=== PATIENT | female | born 1960 | race Caucasian/White ===

== ENCOUNTER 2022-07-13 17:37 | Emergency (ER) | payer BC, OTHER ==
[2022-07-13 17:43] VITALS: BP 120/81; PULSE 110; RESP 18; TEMP 98.1; BMI 56.3
[2022-07-13] MEDS ORDERED: ACETAMINOPHEN 500 MG TABLET (FP) PO ONE (18:31)
[2022-07-13] MEDS ORDERED: ACETAMINOPHEN 325 MG TABLET (FP) ONE (18:34)
[2022-07-13] MEDS ORDERED: LIDOCAINE 5% TOPICAL PATCH TP ONE (19:47)
[2022-07-13 19:54] LABS: EPI CELLS >36 /uL (0-25.1); HYALINE CASTS 2 /uL (0-3.1); PH,URINE 5.5 (5.0-8.0); URINE APPEARANCE CLOUDY; URINE BACTERIA 660 /uL (0-1359); URINE BILIRUBIN NEGATIVE (NEGATIVE); URINE COLOR DK YELLOW; URINE GLUCOSE (UA) 3+ (NEGATIVE); URINE KETONE TRACE (NEGATIVE); URINE LEUK ESTERASE NEGATIVE (NEGATIVE); URINE NITRITE NEGATIVE (NEGATIVE); URINE PROTEIN 1+ (NEGATIVE)
[2022-07-13] MEDS ORDERED: LIDOCAINE 5% TOPICAL PATCH ONE (19:56)
[2022-07-13 20:10] LABS: URINE RBC 22 /uL (0-23.9)
[2022-07-13 20:11] LABS: URINE WBC 125 /uL (0-25.8)
[2022-07-13] MEDS ORDERED: LIDOCAINE PATCH REMOVAL MC SCH (22:00)
== END 2022-07-13 20:14 | disposition home or self-care (01) ==
LOC: JER 17:37
DX: S06.0X9A Concussion with loss of consciousness of unspecified duration, initial encounter (principal); W01.198A Fall on same level from slipping, tripping and stumbling with subsequent striking against other object, initial encounter
CPT/HCPCS: 70450-TC; 72170-TC-FY; 81003; 87086; 99285-25

== ENCOUNTER 2024-02-07 11:36 | Inpatient (IN) | payer BC, OTHER ==
[2024-02-07] MEDS ORDERED: CEFEPIME 2 GM/100 ML BAG IVPB ONE (12:47)
[2024-02-07] MEDS: CEFEPIME HCL 2 GM VIAL (RESTRICTED TO ID) IVPB ONE (12:55)
[2024-02-07] MEDS: CEFEPIME HCL 1 GM VIAL (RESTRICTED TO ID) IVPB ONE (12:56)
[2024-02-07 12:58] LABS: EOS % 0.9 % (0-4.5); HEMATOCRIT 31.9 % (32.4-45.2); HEMOGLOBIN 10.5 GM/dL (10.7-15.3); LYMPH % 15.5 % (8-40); MCH 24.7 pg (25.7-33.7); MCHC 32.8 g/dl (32.0-36.0); MEAN CELL VOLUME 75.3 fl (80-96); MONO % 8.5 % (3.8-10.2); NEUT % 74.1 % (42.8-82.8); PLATELET COUNT 295 10^3/uL (134-434); RBC 4.24 M/mm3 (3.60-5.2); RDW 16.6 % (11.6-15.6); WHITE BLOOD COUNT 10.8 K/mm3 (4.0-10.0)
[2024-02-07] MEDS ORDERED: VANCOMYCIN 1 GRAM (PRE-DOCKED) 1,000 MG/250 ML BAG IVPB ONE ×2 (13:08→15:06)
[2024-02-07] MEDS: VANCOMYCIN 1,000 MG in DEXTROSE 5%-WATER - 250 ML IVPB ONE ×2 (13:29→15:14)
[2024-02-07 13:47] LABS: ERYTHROCYTE SEDIMENTATION RATE 73 mm/hr (0-30)
[2024-02-07 14:21] LABS: POTASSIUM 4.3 mmol/L (3.5-5.1)
[2024-02-07 14:23] LABS: ALBUMIN 2.4 g/dl (3.4-5.0)
[2024-02-07 14:24] LABS: BLOOD UREA NITROGEN 11.5 mg/dL (7-18)
[2024-02-07 14:27] LABS: CREATININE 0.7 mg/dL (0.55-1.3)
[2024-02-07 14:28] LABS: BILIRUBIN,TOTAL 0.6 mg/dL (0.2-1); TOT PROT 7.7 g/dl (6.4-8.2)
[2024-02-07] MEDS ORDERED: ACETAMINOPHEN 325 MG TABLET (FP) PO PRN (15:20)
[2024-02-07] MEDS: PANTOPRAZOLE 40 MG TABLET PO SCH (16:56)
[2024-02-07] MEDS: ZINC SULFATE 220 MG CAPSULE (FP) PO SCH (16:56)
[2024-02-07] MEDS: VITAMIN A 10,000 UNITS (3000 MCG) CAPSULE PO SCH (16:56)
[2024-02-07] MEDS: CHOLECALCIFEROL (VIT D3) 5000 UNITS (125 MCG) CAP PO SCH (16:56)
[2024-02-07] MEDS: INSULIN ASPART SLIDING SCALE (NOVOLOG) 1 VIAL SQ SCH (16:56)
[2024-02-07] MEDS: VANCOMYCIN HCL 1,500 MG in DEXTROSE 5%-WATER - 500 ML IVPB ONE (17:13)
[2024-02-07] MEDS: VANCOMYCIN 500 MG in DEXTROSE 5%-WATER - 250 ML IVPB ONE (17:13)
[2024-02-07] MEDS ORDERED: ATORVASTATIN CA 20 MG TABLET (FP) ONE (22:48)
[2024-02-07] MEDS ORDERED: ASCORBIC ACID 500 MG TABLET (FP) ONE (22:48)
[2024-02-07] MEDS: ASCORBIC ACID 500 MG TABLET (FP) PO SCH (22:54)
[2024-02-07] MEDS: ATORVASTATIN CA 20 MG TABLET (FP) PO SCH (22:54)
[2024-02-07] MEDS ORDERED: INSULIN ASPART SLIDING SCALE (NOVOLOG) 1 VIAL SQ ONE (23:00)
[2024-02-08] MEDS: DIGOXIN 0.125 MG TABLET PO SCH (10:08)
[2024-02-08] MEDS: FUROSEMIDE 40 MG TABLET (FP) PO SCH (10:09)
[2024-02-08] MEDS: LISINOPRIL 10 MG TABLET PO SCH (10:10)
[2024-02-08] MEDS: INSULIN ASPART SLIDING SCALE (NOVOLOG) 1 VIAL SQ SCH ×3 (11:33→23:11)
[2024-02-08] MEDS: EDOXABAN TOSYLATE 30 MG TABLET PO SCH (11:51)
[2024-02-08 11:54] LABS: BASO % 0.4 % (0-2.0); EOS % 1.1 % (0-4.5); HEMATOCRIT 30.2 % (32.4-45.2); LYMPH % 22.6 % (8-40); MCH 24.8 pg (25.7-33.7); MCHC 32.9 g/dl (32.0-36.0); MEAN CELL VOLUME 75.4 fl (80-96); MEAN PLT VOLUME 8.2 fl (7.5-11.1); MONO % 10.5 % (3.8-10.2); NEUT % 65.4 % (42.8-82.8); PLATELET COUNT 281 10^3/uL (134-434); RBC 4.01 M/mm3 (3.60-5.2); RDW 17.1 % (11.6-15.6); WHITE BLOOD COUNT 10.5 K/mm3 (4.0-10.0)
[2024-02-08] MEDS: APIXABAN 5 MG TABLET PO SCH (12:04)
[2024-02-08] MEDS ORDERED: MEROPENEM 1 GM PUSH 1 GM/20 ML DISP.SYRIN IVPUSH SCH (14:45)
[2024-02-08] MEDS ORDERED: CLINDAMYCIN 900 MG PREMIX IVPB 900 MG/50 ML BAG IVPB SCH (14:45)
[2024-02-08] MEDS ORDERED: VANCOMYCIN PREMIX 1.5 GM 1,500 MG/300 ML BAG IVPB SCH (15:00)
[2024-02-08] MEDS: IRON SUCROSE INJECTION 300 MG in SODIUM CHLORIDE 235 ML IVPB ONE (15:00)
[2024-02-08 15:55] LABS: INR 1.31 (0.83-1.09); PROTHROMBIN TIME (PATIENT) 14.7 SEC (9.7-13.0)
[2024-02-08] MEDS ORDERED: PROPOFOL 40 ML ONE (16:27)
[2024-02-08] MEDS ORDERED: LIDOCAINE HCL/PF 2% SDV 5ML VIAL ONE (16:28)
[2024-02-08] MEDS ORDERED: VANCOMYCIN 1,000 MG VIAL (RESTRICTED TO ID ONLY) ONE (16:53)
[2024-02-08] MEDS ORDERED: LIDOCAINE HCL 1%, 10 MG/ML (20ML VIAL) ONE (16:54)
[2024-02-08] MEDS ORDERED: GENTAMICIN SO4 80 MG/2 ML VIAL ONE (16:54)
[2024-02-08] MEDS ORDERED: ROCURONIUM BROMIDE 50 MG/5 ML SYRINGE ONE (17:10)
[2024-02-08] MEDS ORDERED: BUPIVACAINE HCL/PF 0.5% (5MG/ML) 10 ML VIAL ONE (18:58)
[2024-02-08] MEDS ORDERED: LIDOCAINE HCL 2% (20ML MULTI-DOSE VIAL) ONE (18:58)
[2024-02-08] MEDS: LIDOCAINE HCL/PF 2% SDV 5ML VIAL INF ONE (19:15)
[2024-02-08] MEDS: BUPIVACAINE HCL/PF 0.5% (5 MG/ML) 30 ML VIAL IJ ONE ×3 (20:23)
[2024-02-08] MEDS ORDERED: ONDANSETRON 4 MG/2 ML VIAL IVPUSH PRN (20:37)
[2024-02-08] MEDS ORDERED: ACETAMINOPHEN 325 MG TABLET (FP) PO PRN (20:51)
[2024-02-08] MEDS ORDERED: INSULIN (LEVEMIR) 100 UNITS/ML UNITS SQ SCH (22:00)
[2024-02-08] MEDS ORDERED: INSULIN ASPART SLIDING SCALE (NOVOLOG) 1 VIAL SQ SCH (22:00)
[2024-02-08] MEDS: ASCORBIC ACID 500 MG TABLET (FP) PO SCH (23:09)
[2024-02-08] MEDS: ATORVASTATIN CA 20 MG TABLET (FP) PO SCH (23:09)
[2024-02-08] MEDS: INSULIN (LEVEMIR) 100 UNITS/ML UNITS SQ SCH (23:11)
[2024-02-08] MEDS: LACTATED RINGERS SOLUTION 1,000 ML IV SCH (23:40)
[2024-02-09] MEDS ORDERED: ONDANSETRON 4 MG/2 ML VIAL IVPUSH PRN (00:01)
[2024-02-09] MEDS: LACTATED RINGERS SOLUTION 1000 ML INFUS.BAG IV ONE ×2 (00:06→18:25)
[2024-02-09] MEDS: MUPIROCIN 2% TOPICAL OINTMENT FOR DECOLONIZATION NS SCH (00:07)
[2024-02-09 00:38] LABS: BASO % 0.7 % (0-2.0); EOS % 1.1 % (0-4.5); HEMOGLOBIN 8.9 GM/dL (10.7-15.3); LYMPH % 16.3 % (8-40); MCH 24.8 pg (25.7-33.7); MEAN CELL VOLUME 75.1 fl (80-96); MEAN PLT VOLUME 7.9 fl (7.5-11.1); MONO % 10.2 % (3.8-10.2); NEUT % 71.7 % (42.8-82.8); PLATELET COUNT 287 10^3/uL (134-434); RDW 16.6 % (11.6-15.6); WHITE BLOOD COUNT 10.1 K/mm3 (4.0-10.0)
[2024-02-09 00:57] LABS: POTASSIUM 3.8 mmol/L (3.5-5.1)
[2024-02-09 00:59] LABS: CALCIUM 7.7 mg/dL (8.5-10.1)
[2024-02-09 01:00] LABS: BLOOD UREA NITROGEN 9.4 mg/dL (7-18); MAGNESIUM 1.5 mg/dL (1.8-2.4)
[2024-02-09 01:03] LABS: CREATININE 0.7 mg/dL (0.55-1.3)
[2024-02-09 01:04] LABS: BILIRUBIN,TOTAL 0.5 mg/dL (0.2-1)
[2024-02-09 01:05] LABS: TOT PROT 6.3 g/dl (6.4-8.2)
[2024-02-09] MEDS: PHENYLEPHRINE NS PREMIX 50,000 MCG/500 ML BAG IVPB SCH (01:40)
[2024-02-09] MEDS: ACETAMINOPHEN 1000 MG/100 ML BAG IVPB PRN (01:40)
[2024-02-09] MEDS ORDERED: MEROPENEM 1 GM in DEXTROSE 5%-WATER 100 ML IVPB SCH (02:00)
[2024-02-09] MEDS ORDERED: MEROPENEM 1 GM PUSH 1 GM/20 ML DISP.SYRIN IVPUSH SCH (02:00)
[2024-02-09] MEDS: CLINDAMYCIN 900 MG PREMIX IVPB 900 MG/50 ML BAG IVPB SCH (02:08)
[2024-02-09] MEDS: MEROPENEM 1 GM PUSH 1 GM/20 ML DISP.SYRIN IVPUSH SCH (02:08)
[2024-02-09] MEDS: VANCOMYCIN PREMIX 1.5 GM 1,500 MG/300 ML BAG IVPB SCH (04:02)
[2024-02-09] MEDS: INSULIN (LEVEMIR) 100 UNITS/ML UNITS SQ SCH ×2 (06:13→21:44)
[2024-02-09] MEDS: MAGNESIUM 2GM/50ML STERILE WATER IVPB IVPB ONE (06:19)
[2024-02-09 07:44] LABS: BASO % 0.3 % (0-2.0); EOS % 1.4 % (0-4.5); HEMATOCRIT 27.5 % (32.4-45.2); HEMOGLOBIN 8.9 GM/dL (10.7-15.3); LYMPH % 6.3 % (8-40); MCH 24.4 pg (25.7-33.7); MCHC 32.3 g/dl (32.0-36.0); MEAN CELL VOLUME 75.5 fl (80-96); MEAN PLT VOLUME 8.2 fl (7.5-11.1); MONO % 5.3 % (3.8-10.2); NEUT % 86.7 % (42.8-82.8); PLATELET COUNT 327 10^3/uL (134-434); RBC 3.64 M/mm3 (3.60-5.2); RDW 16.8 % (11.6-15.6); WHITE BLOOD COUNT 17.8 K/mm3 (4.0-10.0)
[2024-02-09] MEDS: SODIUM CHLORIDE 500 ML IV STA (09:28)
[2024-02-09] MEDS: MAGNESIUM SULFATE IN WATER 2 GM/50 ML IVPB IVPB ONE (09:42)
[2024-02-09] MEDS: PANTOPRAZOLE SODIUM 40 MG VIAL IVPUSH SCH (09:43)
[2024-02-09] MEDS: ENOXAPARIN NA (PORCINE) 40 MG/0.4 ML DISP.SYRIN SQ SCH (09:44)
[2024-02-09] MEDS: DIGOXIN 0.125 MG TABLET PO SCH (09:44)
[2024-02-09] MEDS: ZINC SULFATE 220 MG CAPSULE (FP) PO SCH (09:45)
[2024-02-09] MEDS: PANTOPRAZOLE 40 MG TABLET PO SCH (09:45)
[2024-02-09] MEDS: VITAMIN A 10,000 UNITS (3000 MCG) CAPSULE PO SCH (09:46)
[2024-02-09] MEDS: CHOLECALCIFEROL (VIT D3) 5000 UNITS (125 MCG) CAP PO SCH (09:48)
[2024-02-09] MEDS ORDERED: EDOXABAN TOSYLATE 30 MG TABLET PO SCH (10:00)
[2024-02-09] MEDS ORDERED: LISINOPRIL 10 MG TABLET PO SCH (10:00)
[2024-02-09] MEDS ORDERED: FUROSEMIDE 40 MG TABLET (FP) PO SCH (10:00)
[2024-02-09] MEDS: BISACODYL 10 MG SUPP.RECT PR ONE (10:41)
[2024-02-09] MEDS: POLYETHYLENE GLYCOL (HEALTHYLAX) 3350 17 GM PACKET PO SCH (10:41)
[2024-02-09] MEDS: IRON SUCROSE INJECTION 300 MG in SODIUM CHLORIDE 235 ML IVPB ONE (10:41)
[2024-02-09] MEDS: DOCUSATE SODIUM 100 MG CAPSULE (FP) PO SCH (14:06)
[2024-02-09] MEDS: COLLAGENASE CLOSTRIDIUM HIST. 30 GRAMS TUBE TP SCH (16:29)
[2024-02-09] MEDS: TAMSULOSIN HCL 0.4 MG CAP PO ONE (16:31)
[2024-02-09] MEDS ORDERED: NOREPINEPHRINE BITARTRATE 4 MG/4 ML ML IV ONE (18:48)
[2024-02-09] MEDS: NOREPINEPHRINE BITARTRATE 4,000 MCG in DEXTROSE 5%-WATER - 496 ML IV SCH (18:58)
[2024-02-09 21:04] LABS: BASO % 0.1 % (0-2.0); EOS % 1.2 % (0-4.5); HEMATOCRIT 26.5 % (32.4-45.2); HEMOGLOBIN 8.4 GM/dL (10.7-15.3); MCHC 31.9 g/dl (32.0-36.0); MEAN CELL VOLUME 75.4 fl (80-96); MEAN PLT VOLUME 7.9 fl (7.5-11.1); MONO % 5.5 % (3.8-10.2); NEUT % 85.2 % (42.8-82.8); PLATELET COUNT 311 10^3/uL (134-434); RBC 3.51 M/mm3 (3.60-5.2); RDW 17.2 % (11.6-15.6)
[2024-02-09 21:07] LABS: ARTERIAL BLD GAS O2 SATURATION 96.7 % (95-98); ARTERIAL BLOOD GAS BASE EXCESS 0.7 mmol/L (-2-2); ARTERIAL BLOOD GAS PO2 81.3 mmHg (80-100); ARTERIAL BLOOD GAS pH 7.475 (7.350-7.450)
[2024-02-09] MEDS: CHLORHEXIDINE GLUCONATE 4% CLEANSER FOR DECOLONIZATION TP SCH (21:46)
[2024-02-09] MEDS: INSULIN ASPART SLIDING SCALE (NOVOLOG) 1 VIAL SQ SCH (22:24)
[2024-02-09] MEDS: LACTATED RINGERS SOLUTION 1,000 ML/1,000 ML INFUS.BAG IV STA (23:10)
[2024-02-10] MEDS: INSULIN (LEVEMIR) 100 UNITS/ML UNITS SQ SCH ×2 (06:36→21:07)
[2024-02-10] MEDS ORDERED: INSULIN (LEVEMIR) 100 UNITS/ML UNITS SQ ONE (06:53)
[2024-02-10 07:43] LABS: BASO % 0.3 % (0-2.0); EOS % 1.8 % (0-4.5); HEMOGLOBIN 8.4 GM/dL (10.7-15.3); LYMPH % 12.1 % (8-40); MCH 24.6 pg (25.7-33.7); MCHC 32.2 g/dl (32.0-36.0); MEAN CELL VOLUME 76.4 fl (80-96); NEUT % 79.8 % (42.8-82.8); PLATELET COUNT 296 10^3/uL (134-434); RDW 16.8 % (11.6-15.6); WHITE BLOOD COUNT 16.1 K/mm3 (4.0-10.0)
[2024-02-10 08:04] LABS: POTASSIUM 3.8 mmol/L (3.5-5.1)
[2024-02-10 08:07] LABS: CALCIUM 7.5 mg/dL (8.5-10.1)
[2024-02-10 08:10] LABS: ALBUMIN 1.8 g/dl (3.4-5.0); BLOOD UREA NITROGEN 7.4 mg/dL (7-18)
[2024-02-10 08:12] LABS: BILIRUBIN,TOTAL 0.6 mg/dL (0.2-1)
[2024-02-10 08:13] LABS: CREATININE 0.5 mg/dL (0.55-1.3); TOT PROT 5.8 g/dl (6.4-8.2)
[2024-02-10] MEDS: IRON SUCROSE INJECTION 300 MG in SODIUM CHLORIDE 235 ML IVPB ONE (09:32)
[2024-02-10] MEDS ORDERED: FUROSEMIDE 40 MG TABLET (FP) PO SCH (10:00)
[2024-02-10] MEDS: LACTATED RINGERS SOLUTION 1,000 ML IV SCH (11:26)
[2024-02-10] MEDS: ACETAMINOPHEN 1000 MG/100 ML BAG IVPB PRN (11:36)
[2024-02-10] MEDS ORDERED: PHENYLEPHRINE HCL 10 MG/1 ML SINGLE DOSE VIAL ONE (16:16)
[2024-02-11] MEDS ORDERED: NOREPINEPHRINE BITARTRATE 4 MG/4 ML ML IV ONE (02:35)
[2024-02-11 07:31] LABS: BASO % 0.1 % (0-2.0); EOS % 2.9 % (0-4.5); HEMATOCRIT 25.2 % (32.4-45.2); LYMPH % 9.1 % (8-40); MCH 24.1 pg (25.7-33.7); MCHC 31.9 g/dl (32.0-36.0); MEAN CELL VOLUME 75.5 fl (80-96); MEAN PLT VOLUME 7.8 fl (7.5-11.1); NEUT % 80.9 % (42.8-82.8); PLATELET COUNT 317 10^3/uL (134-434); RBC 3.34 M/mm3 (3.60-5.2); RDW 17.3 % (11.6-15.6); WHITE BLOOD COUNT 19.6 K/mm3 (4.0-10.0)
[2024-02-11 07:49] LABS: POTASSIUM 3.7 mmol/L (3.5-5.1)
[2024-02-11 08:07] LABS: ALBUMIN 1.6 g/dl (3.4-5.0); CALCIUM 7.3 mg/dL (8.5-10.1); MAGNESIUM 1.8 mg/dL (1.8-2.4)
[2024-02-11 08:11] LABS: CREATININE 0.5 mg/dL (0.55-1.3)
[2024-02-11 08:12] LABS: BILIRUBIN,TOTAL 0.6 mg/dL (0.2-1); TOT PROT 5.6 g/dl (6.4-8.2)
[2024-02-11] MEDS: HYDROmorphone HCl 2 MG/ML VIAL IVPUSH PRN (10:17)
[2024-02-11] MEDS: SODIUM HYPOCHLORITE 0.25%- 473 ML BULK BOTTLE TP SCH (11:19)
[2024-02-11] MEDS: ALBUMIN HUMAN 25% 12.5 GM/50 ML VIAL IV SCH (11:20)
[2024-02-11] MEDS: metoPROLOL SUCCINATE 25 MG TAB.SR.24H (FP) PO ONE (11:45)
[2024-02-11 14:42] VITALS: BMI 42.6
[2024-02-11] MEDS: VANCOMYCIN PREMIX 1.75 GM 1,750 MG/350 ML PIGGYBACK IVPB SCH (15:20)
[2024-02-11] MEDS: MAGNESIUM SULF 50% (8.12 MEQ/2 ML-1 GM VIAL) IVPB ONE (17:16)
[2024-02-11] MEDS: INSULIN (LEVEMIR) 100 UNITS/ML UNITS SQ SCH (21:21)
[2024-02-12] MEDS: LEVOTHYROXINE NA 88 MCG TABLET (FP) PO SCH (06:07)
[2024-02-12 07:03] LABS: BASO % 0.1 % (0-2.0); EOS % 3.5 % (0-4.5); HEMATOCRIT 23.6 % (32.4-45.2); HEMOGLOBIN 7.5 GM/dL (10.7-15.3); LYMPH % 9.8 % (8-40); MCH 24.5 pg (25.7-33.7); MCHC 31.8 g/dl (32.0-36.0); MEAN PLT VOLUME 7.9 fl (7.5-11.1); MONO % 5.5 % (3.8-10.2); NEUT % 81.1 % (42.8-82.8); PLATELET COUNT 258 10^3/uL (134-434); RBC 3.06 M/mm3 (3.60-5.2); RDW 17.6 % (11.6-15.6); WHITE BLOOD COUNT 15.2 K/mm3 (4.0-10.0)
[2024-02-12 07:09] LABS: INR 1.34 (0.83-1.09); PROTHROMBIN TIME (PATIENT) 15.3 SEC (9.7-13.0)
[2024-02-12 07:11] LABS: POTASSIUM 3.7 mmol/L (3.5-5.1)
[2024-02-12 07:17] LABS: CALCIUM 7.6 mg/dL (8.5-10.1)
[2024-02-12 07:18] LABS: BLOOD UREA NITROGEN 6.1 mg/dL (7-18); MAGNESIUM 1.9 mg/dL (1.8-2.4)
[2024-02-12 07:21] LABS: BILIRUBIN,TOTAL 0.7 mg/dL (0.2-1); CREATININE 0.4 mg/dL (0.55-1.3); TOT PROT 5.5 g/dl (6.4-8.2)
[2024-02-12] MEDS ORDERED: GENTAMICIN SO4 80 MG/2 ML VIAL ONE (07:26)
[2024-02-12] MEDS ORDERED: VANCOMYCIN 1,000 MG VIAL (RESTRICTED TO ID ONLY) ONE (07:26)
[2024-02-12] MEDS ORDERED: PROPOFOL 20 ML ONE (07:46)
[2024-02-12] MEDS ORDERED: SUCCINYLCHOLINE CHLORIDE 200 MG/10 ML SYRINGE ONE (07:46)
[2024-02-12] MEDS ORDERED: PHENYLEPHRINE HCL 10 MG/1 ML SINGLE DOSE VIAL ONE (07:46)
[2024-02-12] MEDS: ACETAMINOPHEN 1000 MG/100 ML BAG IVPB ONE (09:13)
[2024-02-12] MEDS ORDERED: ACETAMINOPHEN 1000 MG/100 ML BAG IVPB PRN (11:22)
[2024-02-12] MEDS: diphenhydrAMINE HCL 25 MG CAPSULE (FP) PO ONE (12:09)
[2024-02-12] MEDS: metoPROLOL SUCCINATE 25 MG TAB.SR.24H (FP) PO SCH (14:25)
[2024-02-12] MEDS: oxyCODONE HCL 5 MG TABLET PO PRN (15:27)
[2024-02-12] MEDS ORDERED: ONDANSETRON 4 MG/2 ML VIAL IVPUSH PRN (15:38)
[2024-02-12] MEDS ORDERED: LACTATED RINGERS SOLUTION 1,000 ML IV SCH (15:38)
[2024-02-12] MEDS: INSULIN ASPART SLIDING SCALE (NOVOLOG) 1 VIAL SQ SCH (16:50)
[2024-02-12] MEDS ORDERED: CEFTRIAXONE 2 GM-D5W BAG 2 GM/50 ML BAG IVPB SCH (17:00)
[2024-02-12] MEDS ORDERED: CLINDAMYCIN 900 MG PREMIX IVPB 900 MG/50 ML BAG IVPB SCH (18:00)
[2024-02-12] MEDS ORDERED: MEROPENEM-0.9% SODIUM CHLORIDE 1 GM/50 ML BAG IVPB SCH (18:00)
[2024-02-12] MEDS: CEFTRIAXONE 2 GM-D5W BAG 2 GM/50 ML BAG IVPB SCH (18:24)
[2024-02-12] MEDS: LACTATED RINGERS SOLUTION 1,000 ML IV SCH (18:41)
[2024-02-12] MEDS: POLYETHYLENE GLYCOL (HEALTHYLAX) 3350 17 GM PACKET PO SCH (21:16)
[2024-02-12] MEDS: ASCORBIC ACID 500 MG TABLET (FP) PO SCH (21:16)
[2024-02-12] MEDS: DOCUSATE SODIUM 100 MG CAPSULE (FP) PO SCH (21:16)
[2024-02-12] MEDS: ATORVASTATIN CA 20 MG TABLET (FP) PO SCH (21:16)
[2024-02-12] MEDS: INSULIN (LEVEMIR) 100 UNITS/ML UNITS SQ SCH (21:21)
[2024-02-12] MEDS ORDERED: CHLORHEXIDINE GLUCONATE 4% CLEANSER FOR DECOLONIZATION TP SCH (22:00)
[2024-02-12] MEDS ORDERED: MUPIROCIN 2% TOPICAL OINTMENT FOR DECOLONIZATION NS SCH (22:00)
[2024-02-13] MEDS: LEVOTHYROXINE NA 88 MCG TABLET (FP) PO SCH (06:09)
[2024-02-13 09:01] LABS: HEMATOCRIT 26.3 % (32.4-45.2); HEMOGLOBIN 8.5 GM/dL (10.7-15.3); MCHC 32.3 g/dl (32.0-36.0); MEAN CELL VOLUME 77.3 fl (80-96); MEAN PLT VOLUME 7.5 fl (7.5-11.1); PLATELET COUNT 314 10^3/uL (134-434); RBC 3.41 M/mm3 (3.60-5.2); RDW 17.7 % (11.6-15.6); WHITE BLOOD COUNT 14.4 K/mm3 (4.0-10.0)
[2024-02-13 09:23] LABS: POTASSIUM 4.2 mmol/L (3.5-5.1)
[2024-02-13 09:26] LABS: ALBUMIN 2.2 g/dl (3.4-5.0); CALCIUM 8.4 mg/dL (8.5-10.1)
[2024-02-13 09:27] LABS: BLOOD UREA NITROGEN 6.9 mg/dL (7-18)
[2024-02-13 09:30] LABS: CREATININE 0.5 mg/dL (0.55-1.3)
[2024-02-13 09:31] LABS: BILIRUBIN,TOTAL 0.9 mg/dL (0.2-1); TOT PROT 6.3 g/dl (6.4-8.2)
[2024-02-13] MEDS: ENOXAPARIN NA (PORCINE) 40 MG/0.4 ML DISP.SYRIN SQ SCH (10:23)
[2024-02-13] MEDS: ZINC SULFATE 220 MG CAPSULE (FP) PO SCH (10:24)
[2024-02-13] MEDS: CHOLECALCIFEROL (VIT D3) 5000 UNITS (125 MCG) CAP PO SCH (10:24)
[2024-02-13] MEDS: DIGOXIN 0.125 MG TABLET PO SCH (10:24)
[2024-02-13] MEDS: VITAMIN A 10,000 UNITS (3000 MCG) CAPSULE PO SCH (10:25)
[2024-02-13] MEDS: PANTOPRAZOLE SODIUM 40 MG VIAL IVPUSH SCH (10:26)
[2024-02-13] MEDS: ACETAMINOPHEN 325 MG TABLET (FP) PO PRN (16:04)
[2024-02-13] MEDS: SODIUM HYPOCHLORITE 0.25%- 473 ML BULK BOTTLE TP SCH (19:51)
[2024-02-13] MEDS: COLLAGENASE CLOSTRIDIUM HIST. 30 GRAMS TUBE TP SCH (19:51)
[2024-02-14] MEDS ORDERED: INSULIN (LEVEMIR) 100 UNITS/ML UNITS SQ SCH (10:27)
[2024-02-14 10:30] LABS: POTASSIUM 3.8 mmol/L (3.5-5.1)
[2024-02-14 10:32] LABS: CALCIUM 8.2 mg/dL (8.5-10.1)
[2024-02-14 10:36] LABS: CREATININE 0.5 mg/dL (0.55-1.3)
[2024-02-14] MEDS: INSULIN (LEVEMIR) 100 UNITS/ML UNITS SQ SCH (22:21)
[2024-02-15 10:49] LABS: HEMATOCRIT 28.5 % (32.4-45.2); HEMOGLOBIN 9.4 GM/dL (10.7-15.3); MCH 25.8 pg (25.7-33.7); MEAN PLT VOLUME 7.9 fl (7.5-11.1); PLATELET COUNT 319 10^3/uL (134-434); RBC 3.65 M/mm3 (3.60-5.2); RDW 18.4 % (11.6-15.6); WHITE BLOOD COUNT 13.4 K/mm3 (4.0-10.0)
[2024-02-15] MEDS: diphenhydrAMINE HCL 25 MG CAPSULE (FP) PO ONE (11:14)
[2024-02-15 11:18] LABS: POTASSIUM 3.6 mmol/L (3.5-5.1)
[2024-02-15 11:23] LABS: CALCIUM 8.1 mg/dL (8.5-10.1)
[2024-02-15 11:24] LABS: BLOOD UREA NITROGEN 6.9 mg/dL (7-18)
[2024-02-15 11:27] LABS: CREATININE 0.5 mg/dL (0.55-1.3)
[2024-02-15 11:37] LABS: ANISOCYTOSIS 0; HELMET CELLS 0; HOWELL-JOLLY BODIES 0; MACROCYTOSIS 0; OVALOCYTE 0; ROULEAU 0; SICKELED CELLS 0; TARGET CELLS 0; TEAR DROP CELLS 0; TOXIC GRANULATION 0
[2024-02-15] MEDS: LACTATED RINGERS SOLUTION 1,000 ML IV SCH (13:32)
[2024-02-15] MEDS: INSULIN (LEVEMIR) 100 UNITS/ML UNITS SQ SCH (21:36)
[2024-02-16 08:59] LABS: POTASSIUM 3.6 mmol/L (3.5-5.1)
[2024-02-16 09:05] LABS: BLOOD UREA NITROGEN 6.1 mg/dL (7-18); CALCIUM 8.5 mg/dL (8.5-10.1)
[2024-02-16 09:09] LABS: CREATININE 0.4 mg/dL (0.55-1.3)
[2024-02-16 09:19] LABS: BASO % 0.5 % (0-2.0); EOS % 2.6 % (0-4.5); LYMPH % 26.5 % (8-40); MCH 25.5 pg (25.7-33.7); MCHC 32.1 g/dl (32.0-36.0); MEAN CELL VOLUME 79.6 fl (80-96); MEAN PLT VOLUME 7.5 fl (7.5-11.1); MONO % 9.7 % (3.8-10.2); NEUT % 60.7 % (42.8-82.8); PLATELET COUNT 319 10^3/uL (134-434); RBC 3.52 M/mm3 (3.60-5.2); RDW 19.2 % (11.6-15.6); WHITE BLOOD COUNT 12.7 K/mm3 (4.0-10.0)
[2024-02-16] MEDS: PANTOPRAZOLE 40 MG TABLET PO SCH (09:20)
[2024-02-16] MEDS: traMADol HCL 50 MG TABLET PO PRN (15:48)
[2024-02-16] MEDS: LACTATED RINGERS SOLUTION 1,000 ML IV SCH (17:16)
[2024-02-17 08:35] LABS: BASO % 0.9 % (0-2.0); EOS % 2.8 % (0-4.5); HEMATOCRIT 26.4 % (32.4-45.2); HEMOGLOBIN 8.5 GM/dL (10.7-15.3); LYMPH % 30.6 % (8-40); MCH 25.4 pg (25.7-33.7); MEAN CELL VOLUME 79.5 fl (80-96); MEAN PLT VOLUME 7.2 fl (7.5-11.1); MONO % 9.9 % (3.8-10.2); NEUT % 55.8 % (42.8-82.8); PLATELET COUNT 271 10^3/uL (134-434); RBC 3.33 M/mm3 (3.60-5.2); RDW 20.7 % (11.6-15.6); WHITE BLOOD COUNT 9.4 K/mm3 (4.0-10.0)
[2024-02-17 08:48] LABS: POTASSIUM 3.6 mmol/L (3.5-5.1)
[2024-02-17 08:50] LABS: CALCIUM 8.2 mg/dL (8.5-10.1)
[2024-02-17 08:54] LABS: CREATININE 0.4 mg/dL (0.55-1.3)
[2024-02-17 09:45] LABS: ANISOCYTOSIS 2+; MACROCYTOSIS 0
[2024-02-17] MEDS: ACETAMINOPHEN 325 MG TABLET (FP) PO PRN (11:43)
[2024-02-17] MEDS: INSULIN (LEVEMIR) 100 UNITS/ML UNITS SQ SCH (21:22)
[2024-02-18 10:23] LABS: BASO % 0.7 % (0-2.0); EOS % 3.2 % (0-4.5); HEMATOCRIT 26.5 % (32.4-45.2); HEMOGLOBIN 8.5 GM/dL (10.7-15.3); LYMPH % 29.8 % (8-40); MCH 25.2 pg (25.7-33.7); MCHC 31.9 g/dl (32.0-36.0); MEAN PLT VOLUME 7.5 fl (7.5-11.1); MONO % 10.3 % (3.8-10.2); PLATELET COUNT 254 10^3/uL (134-434); RBC 3.35 M/mm3 (3.60-5.2); RDW 21.3 % (11.6-15.6); WHITE BLOOD COUNT 6.8 K/mm3 (4.0-10.0)
[2024-02-18 10:46] LABS: POTASSIUM 3.9 mmol/L (3.5-5.1)
[2024-02-18 10:48] LABS: CALCIUM 7.9 mg/dL (8.5-10.1)
[2024-02-18 10:49] LABS: BLOOD UREA NITROGEN 7.1 mg/dL (7-18)
[2024-02-18 10:52] LABS: CREATININE 0.4 mg/dL (0.55-1.3)
[2024-02-19] MEDS: ERTAPENEM SODIUM 1 GM in SODIUM CHLORIDE 50 ML IVPB SCH (17:53)
[2024-02-20 09:48] LABS: BASO % 0.6 % (0-2.0); EOS % 3.9 % (0-4.5); HEMATOCRIT 28.1 % (32.4-45.2); LYMPH % 37.5 % (8-40); MCH 25.2 pg (25.7-33.7); MEAN CELL VOLUME 78.8 fl (80-96); MEAN PLT VOLUME 7.5 fl (7.5-11.1); MONO % 8.8 % (3.8-10.2); NEUT % 49.2 % (42.8-82.8); PLATELET COUNT 231 10^3/uL (134-434); RBC 3.56 M/mm3 (3.60-5.2); RDW 21.2 % (11.6-15.6); WHITE BLOOD COUNT 6.5 K/mm3 (4.0-10.0)
[2024-02-20 10:45] LABS: ANISOCYTOSIS 1+
[2024-02-21 10:22] LABS: BASO % 0.7 % (0-2.0); EOS % 4.8 % (0-4.5); HEMATOCRIT 27.8 % (32.4-45.2); HEMOGLOBIN 8.9 GM/dL (10.7-15.3); LYMPH % 38.7 % (8-40); MCH 25.7 pg (25.7-33.7); MCHC 32.2 g/dl (32.0-36.0); MEAN CELL VOLUME 79.7 fl (80-96); MEAN PLT VOLUME 7.8 fl (7.5-11.1); MONO % 8.5 % (3.8-10.2); NEUT % 47.3 % (42.8-82.8); PLATELET COUNT 233 10^3/uL (134-434); RBC 3.48 M/mm3 (3.60-5.2); RDW 21.9 % (11.6-15.6); WHITE BLOOD COUNT 6.8 K/mm3 (4.0-10.0)
[2024-02-22 10:55] LABS: EOS % 5.6 % (0-4.5); HEMATOCRIT 29.6 % (32.4-45.2); HEMOGLOBIN 9.3 GM/dL (10.7-15.3); MCH 25.2 pg (25.7-33.7); MCHC 31.3 g/dl (32.0-36.0); MEAN CELL VOLUME 80.3 fl (80-96); MEAN PLT VOLUME 8.2 fl (7.5-11.1); MONO % 8.3 % (3.8-10.2); NEUT % 50.1 % (42.8-82.8); PLATELET COUNT 227 10^3/uL (134-434); RBC 3.68 M/mm3 (3.60-5.2); RDW 21.6 % (11.6-15.6)
[2024-02-23 10:16] LABS: BASO % 0.9 % (0-2.0); HEMATOCRIT 30.1 % (32.4-45.2); HEMOGLOBIN 9.7 GM/dL (10.7-15.3); LYMPH % 47.7 % (8-40); MCH 25.6 pg (25.7-33.7); MCHC 32.2 g/dl (32.0-36.0); MEAN CELL VOLUME 79.6 fl (80-96); MEAN PLT VOLUME 8.1 fl (7.5-11.1); MONO % 8.9 % (3.8-10.2); NEUT % 36.5 % (42.8-82.8); PLATELET COUNT 226 10^3/uL (134-434); RBC 3.78 M/mm3 (3.60-5.2); RDW 22.2 % (11.6-15.6); WHITE BLOOD COUNT 5.6 K/mm3 (4.0-10.0)
[2024-02-23 10:24] LABS: POTASSIUM 3.9 mmol/L (3.5-5.1)
[2024-02-23 11:09] LABS: CALCIUM 8.9 mg/dL (8.5-10.1)
[2024-02-23 11:10] LABS: BLOOD UREA NITROGEN 5.7 mg/dL (7-18)
[2024-02-23 11:13] LABS: CREATININE 0.5 mg/dL (0.55-1.3)
[2024-02-23] MEDS: APIXABAN 5 MG TABLET PO SCH (21:21)
[2024-02-24 10:34] LABS: BASO % 1.2 % (0-2.0); EOS % 5.3 % (0-4.5); HEMATOCRIT 27.8 % (32.4-45.2); LYMPH % 38.4 % (8-40); MCH 26.1 pg (25.7-33.7); MCHC 32.5 g/dl (32.0-36.0); MEAN CELL VOLUME 80.5 fl (80-96); MEAN PLT VOLUME 8.6 fl (7.5-11.1); MONO % 8.9 % (3.8-10.2); NEUT % 46.2 % (42.8-82.8); PLATELET COUNT 208 10^3/uL (134-434); RBC 3.46 M/mm3 (3.60-5.2); RDW 21.8 % (11.6-15.6); WHITE BLOOD COUNT 5.7 K/mm3 (4.0-10.0)
[2024-02-26 10:06] LABS: BASO % 1.1 % (0-2.0); HEMATOCRIT 31.5 % (32.4-45.2); HEMOGLOBIN 9.8 GM/dL (10.7-15.3); LYMPH % 36.7 % (8-40); MCH 25.3 pg (25.7-33.7); MCHC 31.1 g/dl (32.0-36.0); MEAN CELL VOLUME 81.4 fl (80-96); MEAN PLT VOLUME 8.7 fl (7.5-11.1); MONO % 9.7 % (3.8-10.2); NEUT % 47.5 % (42.8-82.8); PLATELET COUNT 213 10^3/uL (134-434); RBC 3.87 M/mm3 (3.60-5.2); RDW 22.2 % (11.6-15.6); WHITE BLOOD COUNT 5.9 K/mm3 (4.0-10.0)
[2024-02-27 03:38] VITALS: RESP 18
[2024-02-27] MEDS: FLU VACCINE (FLULAVAL) PF 45 MCG/0.5 ML SYRINGE 2024-2025 IM ONE (11:38)
[2024-02-27 21:05] VITALS: BP 109/61; PULSE 87; TEMP 98.2
== END 2024-02-28 02:10 | DRG 616 ==
LOC: JER 11:36 → JERBED 14:36 → J5S 02-08 01:30 → JICU 02-08 21:46 → J6S 02-12 14:44
PROVIDERS: ADMIT Internal Medicine; ATTEND Internal Medicine
PROC: 0Y6M0Z8 Detachment at Right Foot, Complete 5th Ray, Open Approach (ICD-10-PCS; principal; 2024-02-08 17:00)
PROC: 4A133B1 Monitoring of Arterial Pressure, Peripheral, Percutaneous Approach (ICD-10-PCS; 2024-02-09)
PROC: 4A133J1 Monitoring of Arterial Pulse, Peripheral, Percutaneous Approach (ICD-10-PCS; 2024-02-09)
PROC: 0QBN0ZZ Excision of Right Metatarsal, Open Approach (ICD-10-PCS; 2024-02-12)
PROC: 02HV33Z Insertion of Infusion Device into Superior Vena Cava, Percutaneous Approach (ICD-10-PCS; 2024-02-26)
PROC: B548ZZA Ultrasonography of Superior Vena Cava, Guidance (ICD-10-PCS; 2024-02-26)
DX: E11.69 Type 2 diabetes mellitus with other specified complication (principal); A41.9 Sepsis, unspecified organism; R65.21 Severe sepsis with septic shock; M86.171 Other acute osteomyelitis, right ankle and foot; L03.115 Cellulitis of right lower limb; Z94.4 Liver transplant status; Z94.0 Kidney transplant status; I50.32 Chronic diastolic (congestive) heart failure; Z68.41 Body mass index [BMI] 40.0-44.9, adult; E11.621 Type 2 diabetes mellitus with foot ulcer; L97.509 Non-pressure chronic ulcer of other part of unspecified foot with unspecified severity; D50.9 Iron deficiency anemia, unspecified; E03.9 Hypothyroidism, unspecified; E66.9 Obesity, unspecified
CPT/HCPCS: 36415; 36569; 36600; 71045-TC-FY; 73630-TC-RT-FY; 73701-TC-RT; 80048; 80053; 80162; 82308; 82728; 82803; 82962; 83036; 83540; 83550; 83605; 83735; 84100; 85025; 85027; 85610; 85651; 86140; 86850; 86900; 86901; 87040; 87070; 87075; 87076; 87186; 87205; 87635; 88304-TC; 88305-TC; 88311-TC; 90656; 93005; 93010; 93306-TC; 93971-TC; 94010; 94760; 97116-GP; 97161-GP; 99285-25; G0480; J0131; J1756; J3370; P9047; Q9967